=== PATIENT | male | born 1950 | race Caucasian/White ===

== ENCOUNTER 2017-07-21 07:47 | Day surgery (SDC) | payer OTHER ==
[2017-07-19 14:34] VITALS: BMI 23.5
[~2017-07-21 07:47] MED LIST: LACTATED RINGERS 1,000 ML IV SCH
[2017-07-21 08:13] VITALS: RESP 16; TEMP 98.4
[2017-07-21] MEDS ORDERED: LIDOCAINE 1% 20 ML VIAL (10MG/ML) FOR IV START INTRADERMA ONE (08:19)
[2017-07-21] MEDS ORDERED: LIDOCAINE 1% INJ 10MG/ML (20 ML MDV) ONE (09:05)
[2017-07-21] MEDS ORDERED: PROPOFOL 10 MG/ML 20 ML VIAL IV ONE (09:05)
--- NOTE | 2017-07-21 09:29 | P.PCN ---
Date of Procedure: 07/21/17 Procedure(s) Performed: Procedure: Total colonoscopy. Preoperative diagnosis: Positive occult blood in the stools. Postoperative diagnosis: Diverticulosis with no evidence of acute diverticulitis , strictures, polyps or cancer. Preparation: HalfLytely prep. Sedation: Was provided by anesthesia. Brief clinical history: The patient is a 67-year-old male who is referred because of occult blood positive stools. He has no abdominal complaints, bleeding or anemia. His prior colonoscopy may have been around 7 years ago or so. He does have history of reflux but this has not been symptomatic. This evaluation was requested to rule out colon neoplasia. Procedure: With the patient on his left lateral decubitus position and after informed consent and adequate sedation, the perianal area was inspected and it did not show any fissures or fistulas. There were no masses felt on digital rectal examination. The Olympus CFQ 160L video colonoscope was then inserted in the rectum in the usual fashion and advanced to the cecum. There were multiple diverticular orifices seen scattered, some in the sigmoid and some on the right side and cecum with no evidence of acute diverticulitis or strictures. The mucosa appeared healthy. No polyps or tumors were seen. I retroflexed the endoscope in the rectum before the endoscope was withdrawn. The patient tolerated the procedure well. Plan: The patient was reassured. Discussed dietary measures. Consideration can be given for upper GI workup if he continues to have blood in his stools and if he manifests upper GI complaints or worsening anemia. I would be happy to see him in the future. He will follow up with you as planned. In the absence of finding of polyps today or family history of colon cancer I recommended repeat colonoscopy in 10 years.
[2017-07-21 09:42] VITALS: BP 147/79; PULSE 80
== END 2017-07-21 10:08 | disposition home or self-care (01) ==
LOC: ORWHC2ENDO 07:47
DX: K57.30 Diverticulosis of large intestine without perforation or abscess without bleeding (principal); R19.5 Other fecal abnormalities; K21.9 Gastro-esophageal reflux disease without esophagitis; I10 Essential (primary) hypertension; E78.5 Hyperlipidemia, unspecified; Z79.899 Other long term (current) drug therapy; Z88.0 Allergy status to penicillin
CPT/HCPCS: 45378; J2001; J2704